=== PATIENT | female | born 1965 | race Caucasian/White ===

== ENCOUNTER 2018-09-08 15:34 | Emergency (ER) | payer MEDICAID ==
[~2018-09-08] VITALS: Ht 157.5 cm; Wt 69.2 kg
[2018-09-08 16:27] LABS: CLARITY,URINE CLOUDY (Clear); COLOR,URINE YELLOW (Yellow); GLUCOSE, URINE NEGATIVE (Neg); KETONES,URINE NEGATIVE (Neg); LEUKOCYTE ESTERASE ,URINE TRACE (Neg); NITRITES, URINE NEGATIVE (Neg); OCCULT BLOOD,URINE NEGATIVE (Neg); PROTEIN,URINE TRACE mg/dl (Neg)
[2018-09-08 16:28] LABS: UA COLLECTION TYPE CLN CATCH MIDSTREAM
[2018-09-08 16:30] LABS: BASOPHILS # (AUTO) 0.1 X10'3 (0-0.2); BASOPHILS % (AUTO) 0.9 % (0-1); EOSINOPHILS # (AUTO) 0.3 X10'3 (0-0.9); HEMATOCRIT 42.5 % (35.0-45.0); HEMOGLOBIN 14.7 g/dl (12.0-16.0); LYMPHOCYTES # (AUTO) 3.3 X10'3 (1.1-4.8); LYMPHOCYTES % (AUTO) 37.8 % (21-51); MEAN CORPUSCULAR HEMOGLOBIN 29.9 PG (27.0-31.0); MEAN CORPUSCULAR HGB CONC 34.7 g/dL (33.0-36.5); MEAN CORPUSCULAR VOLUME 86.2 FL (78-98); MONOCYTES # (AUTO) 0.5 X10'3 (0-0.9); MONOCYTES % (AUTO) 5.6 % (2-12); NEUTROPHILS # (AUTO) 4.5 X10'3 (1.8-7.7); NEUTROPHILS % (AUTO) 51.7 % (42-75); PLATELET COUNT 332 X10'3 (140-440); RED BLOOD COUNT 4.94 X10'6 (4.20-5.60); RED CELL DISTRIBUTION WIDTH 12.7 % (11.5-14.5); WHITE BLOOD COUNT 8.7 X10'3 (4.5-11.0)
[2018-09-08 16:33] LABS: SQUAMOUS EPITHELIAL CELL,UR MANY /LPF (FEW)
[2018-09-08 16:34] LABS: BACTERIA,URINE 1+ /HPF (Neg); MUCUS STRANDS MODERATE /LPF (Neg); RBC,URINE 0-2 /HPF (0-2)
[2018-09-08] MEDS ORDERED: LORazepam 1 MG tablet PO ONE (16:40)
[2018-09-08 16:42] LABS: ALANINE AMINOTRANSFERASE 28 U/L (12-78); ALBUMIN 3.7 G/DL (3.4-5.0); ALKALINE PHOSPHATASE 139 IU/L (46-116); ANION GAP 10 (8-16); ASPARTATE AMINO TRANSFERASE 17 U/L (10-37); BILIRUBIN,TOTAL 0.4 MG/DL (0.1-1.0); BLOOD UREA NITROGEN 12 MG/DL (7-18); BUN/CREATININE RATIO 17.6 (6.6-38.0); CALCIUM 9.8 MG/DL (8.5-10.1); CHLORIDE 104 MMOL/L (99-107); CREATININE 0.68 MG/DL (0.40-0.90); GLUCOSE 203 MG/DL (70-104); POTASSIUM 3.6 MMOL/L (3.5-5.1); SODIUM 139 MMOL/L (135-145); TOTAL CARBON DIOXIDE 25.1 MMOL/L (24-32); TOTAL PROTEIN 7.5 G/DL (6.4-8.2); eGFR 90 ML/MIN
[2018-09-08 18:09] LABS: PARTIAL THROMBOPLASTIN TIME 25 SECONDS (22-32)
[2018-09-08] MEDS ORDERED: LORA-269 PO (18:56)
[2018-09-08 19:06] VITALS: BP 154/100
== END 2018-09-08 19:08 | disposition home or self-care (01) ==
LOC: ER 15:34
DX: F41.9 Anxiety disorder, unspecified (principal); Z79.899 Other long term (current) drug therapy; Z98.890 Other specified postprocedural states
CPT/HCPCS: 36415; 71045; 80053; 81001; 84484; 85025; 85610; 85730; 93005; 99284

== ENCOUNTER 2019-01-08 09:23 | Inpatient (IN) | payer MEDICAID ==
[~2019-01-08] VITALS: Ht 157.5 cm; Wt 65.9 kg
[~2019-01-08 09:23] MED LIST: LORA-269 PO
[2019-01-08 10:42] LABS: BASOPHILS % (AUTO) 0.4 % (0-1); EOSINOPHILS # (AUTO) 0.3 X10'3 (0-0.9); EOSINOPHILS % (AUTO) 3.1 % (0-6); HEMATOCRIT 40.4 % (35.0-45.0); HEMOGLOBIN 13.9 g/dl (12.0-16.0); LYMPHOCYTES # (AUTO) 2.5 X10'3 (1.1-4.8); MEAN CORPUSCULAR HEMOGLOBIN 30.1 PG (27.0-31.0); MEAN CORPUSCULAR HGB CONC 34.4 g/dL (33.0-36.5); MEAN CORPUSCULAR VOLUME 87.4 FL (78-98); MEAN PLATELET VOLUME 8.5 FL (7.4-10.4); MONOCYTES # (AUTO) 0.4 X10'3 (0-0.9); MONOCYTES % (AUTO) 4.6 % (2-12); NEUTROPHILS # (AUTO) 5.7 X10'3 (1.8-7.7); NEUTROPHILS % (AUTO) 63.9 % (42-75); PLATELET COUNT 325 X10'3 (140-440); RED BLOOD COUNT 4.62 X10'6 (4.20-5.60); WHITE BLOOD COUNT 8.9 X10'3 (4.5-11.0)
--- NOTE | 2019-01-08 10:48 | NUR ---
PT OUT TO CT WITH SENIOR TECHNICAL RECRUITER VIA WHEELCHAIR
[2019-01-08 10:55] LABS: ALANINE AMINOTRANSFERASE 22 U/L (12-78); ALBUMIN 3.9 G/DL (3.4-5.0); ALKALINE PHOSPHATASE 100 IU/L (46-116); ANION GAP 12 (8-16); ASPARTATE AMINO TRANSFERASE 9 U/L (10-37); BILIRUBIN,TOTAL 0.3 MG/DL (0.1-1.0); BLOOD UREA NITROGEN 22 MG/DL (7-18); BUN/CREATININE RATIO 23.7 (6.6-38.0); CALCIUM 9.9 MG/DL (8.5-10.1); CHLORIDE 104 MMOL/L (99-107); CREATININE 0.93 MG/DL (0.40-0.90); GLUCOSE 279 MG/DL (70-104); POTASSIUM 3.8 MMOL/L (3.5-5.1); SODIUM 140 MMOL/L (135-145); TOTAL CARBON DIOXIDE 24.4 MMOL/L (24-32); TOTAL PROTEIN 7.7 G/DL (6.4-8.2); eGFR 63 ML/MIN
--- NOTE | 2019-01-08 10:58 | NUR ---
PT RETURNS FROM CT
[2019-01-08] MEDS ORDERED: potassium Cl 20 mEq SR tablet PO PRN ×2 (12:50)
[2019-01-08] MEDS ORDERED: acetaminophen 325mg tablet PO PRN ×2 (12:50)
[2019-01-08] MEDS ORDERED: potassium CL 10mEq/100ml bag 100 ML IV PRN ×2 (12:50)
[2019-01-08] MEDS ORDERED: magnesium 2GM in 50ml NS 50 ML IV PRN (12:50)
[2019-01-08] MEDS ORDERED: morphine 2 MG/ML inj. syringe IV PRN (12:50)
[2019-01-08] MEDS ORDERED: magnesium 4gm in 100ml NS 100 ML IV PRN (12:50)
[2019-01-08] MEDS: normal saline 1000ml 1,000 ML IV SCH ×2 (13:10→14:38)
--- NOTE | 2019-01-08 13:23 | NUR ---
received report from sanchez bhandari in [place]
[2019-01-08 13:25] LABS: HEMOGLOBIN A1C 10.3 % (4.5-6.2)
[2019-01-08 13:49] VITALS: BP 183/87
[2019-01-08] MEDS ORDERED: dextrose ORAL solution 15 GM/59 ML bottle PO PRN ×2 (14:25)
[2019-01-08] MEDS ORDERED: dextrose 50%-water 50ml dispensing syringe IV PRN ×2 (14:25)
[2019-01-08] MEDS ORDERED: glucagon, human recombinant 1mg kit SUBCUT PRN (14:25)
[2019-01-08] MEDS ORDERED: MESSAGE TO PHARMACY PO ONE (14:25)
[2019-01-08 18:00] VITALS: BP 182/99
--- NOTE | 2019-01-08 18:19 | NUR ---
GAVE REPORT TO MIRIAM MCCLAIN
--- NOTE | 2019-01-08 18:20 | NUR ---
Patient in room [facility]TH[facility] 4013. I have received report from Arlene PINEDA and had the opportunity to ask questions and assume patient care.
[2019-01-08] MEDS: heparin, porcine 5000 units/ml vial SQ SCH (19:21)
[2019-01-08] MEDS: docusate sod 100mg capsule PO SCH (19:21)
[2019-01-08] MEDS: insulin glargine (Lantus) pen - multi-dose SQ SCH (21:21)
[2019-01-08 22:00] VITALS: BP 156/67
[2019-01-09] MEDS: normal saline 1000ml 1,000 ML IV SCH ×2 (02:49→13:53)
[2019-01-09 05:00] VITALS: BP_SYST 176; BP_SYST 186; BP_DIAS 100; BP_DIAS 96
[2019-01-09 06:05] LABS: BASOPHILS # (AUTO) 0.1 X10'3 (0-0.2); BASOPHILS % (AUTO) 0.6 % (0-1); EOSINOPHILS # (AUTO) 0.4 X10'3 (0-0.9); EOSINOPHILS % (AUTO) 4.6 % (0-6); HEMATOCRIT 41.4 % (35.0-45.0); HEMOGLOBIN 13.9 g/dl (12.0-16.0); LYMPHOCYTES # (AUTO) 3.4 X10'3 (1.1-4.8); LYMPHOCYTES % (AUTO) 40.9 % (21-51); MEAN CORPUSCULAR HEMOGLOBIN 29.5 PG (27.0-31.0); MEAN CORPUSCULAR HGB CONC 33.7 g/dL (33.0-36.5); MEAN CORPUSCULAR VOLUME 87.6 FL (78-98); MEAN PLATELET VOLUME 9.4 FL (7.4-10.4); MONOCYTES # (AUTO) 0.4 X10'3 (0-0.9); MONOCYTES % (AUTO) 5.1 % (2-12); NEUTROPHILS % (AUTO) 48.8 % (42-75); PLATELET COUNT 329 X10'3 (140-440); RED BLOOD COUNT 4.72 X10'6 (4.20-5.60); RED CELL DISTRIBUTION WIDTH 13.2 % (11.5-14.5); WHITE BLOOD COUNT 8.3 X10'3 (4.5-11.0)
--- NOTE | 2019-01-09 06:07 | NUR ---
Problems reprioritized. Patient report given, questions answered & plan of care reviewed with Ermelinda PINEDA.
[2019-01-09 06:17] LABS: ALBUMIN 3.7 G/DL (3.4-5.0); ANION GAP 10 (8-16); BLOOD UREA NITROGEN 14 MG/DL (7-18); BUN/CREATININE RATIO 21.9 (6.6-38.0); CALCIUM 9.5 MG/DL (8.5-10.1); CHLORIDE 106 MMOL/L (99-107); CHOL/HDL RATIO 3.5 (0.00-4.99); CHOLESTEROL 135 MG/DL (0-200); CREATININE 0.64 MG/DL (0.40-0.90); GLUCOSE 163 MG/DL (70-104); HDL CHOLESTEROL 39 MG/DL (35-60); LDL CHOLESTEROL 67 MG/DL (50-100); MAGNESIUM 1.3 MG/DL (1.5-2.4); POTASSIUM 3.7 MMOL/L (3.5-5.1); SODIUM 142 MMOL/L (135-145); TOTAL CARBON DIOXIDE 26.2 MMOL/L (24-32); TRIGLYCERIDES 219 MG/DL (20-135); eGFR > 90 ML/MIN
[2019-01-09] MEDS: aspirin 325mg tablet PO SCH (08:12)
[2019-01-09] MEDS: docusate sod 100mg capsule PO SCH ×2 (08:12→20:26)
[2019-01-09] MEDS: K and/or MAG REPLACEMENT MC SCH (08:12)
[2019-01-09] MEDS: magnesium Cl slow-release 64mg tablet PO PRN ×2 (08:13→17:44)
[2019-01-09] MEDS: HYDROcodone/acetaminophen 5mg/325mg tablet PO PRN ×2 (08:19→19:15)
[2019-01-09] MEDS: insulin Lispro (HumaLOG) vial - multi-dose SQ SCH ×3 (08:27→19:12)
[2019-01-09] MEDS: heparin, porcine 5000 units/ml vial SQ SCH ×2 (08:33→20:26)
[2019-01-09] MEDS ORDERED: ATOR10TA70 PO (09:44)
[2019-01-09] MEDS ORDERED: METF-950 PO (09:44)
[2019-01-09] MEDS ORDERED: CLON0.2T PO (09:44)
[2019-01-09] MEDS ORDERED: FENO134C PO (09:44)
[2019-01-09] MEDS ORDERED: fenofibrate 145mg tablet PO SCH (12:35)
[2019-01-09] MEDS ORDERED: cloNIDine 0.1 mg tablet PO ONE (13:25)
[2019-01-09] MEDS ORDERED: mag hydrox/Alum hydrox/simeth 30ml oral suspension PO PRN (13:25)
[2019-01-09] MEDS: atorvastatin 10mg tablet PO SCH (13:37)
[2019-01-09] MEDS: vancomycin/NS 1 GM ADD-VANTAGE 250 ML IV SCH (14:05)
--- NOTE | 2019-01-09 14:32 | NUR ---
DM Consult: Pt admit w/ R arm numbness concerns for TIA hx T2DM A1C 10.3. Per MD note compliant w/ meds but not diet. Pt/family seen by RD for written/verbal DM ed w/ RD contact information provided. Pt/SO report recently starting to follow PCP for DM management, take meds as Rx, and check GLU each AM w/ strips and never run out. RD encouraged pt to check GLU at lease BID[facility], attend CDE course, and establish w/ cleaning team member if possible. Pt/SO had multiple questions regarding proper hydration, portion sizing, meal frequency, diabetic friendly ONS, and signs of altered GLU which RD reviewed. Encouraged pt/SO to contact RD if further questions. Pt reports low appetite lately at home and agreeable to Chocolate Glucerna BIDBD pending MD verification. PO 100% carb controlled/mechanical soft ground meat meals per [employer]MENT TECHNICIAN since pt has no teeth; meeting needs. LBM 01/06. RD d/w RN for anti-hyperlipidemic per MD approval given TG 219 on admit given DM hx. Will continue to monitor. Rec: 1. continue mechanical soft/carb controlled 2. chocolate Glucerna BIDBD pending MD verification prior to sending on trays 3. wt per rx Addendum: 01/09/19 at [address] Amended: Links added.
[2019-01-09] MEDS ORDERED: NUT.TX.GLUC.INTOLER,LAC-FR,SOY (GLUCERNA) 237 ML PO SCH (17:30)
--- NOTE | 2019-01-09 18:06 | NUR ---
Patient in room [facility]TH[facility] 4013. I have received report from MIRIAM Wadsworth and had the opportunity to ask questions and assume patient care.
[2019-01-09] MEDS: cloNIDine 0.1 mg tablet PO SCH (20:26)
[2019-01-09] MEDS: insulin glargine (Lantus) pen - multi-dose SQ SCH (21:16)
[2019-01-09 22:36] VITALS: BP 115/56
[2019-01-10] MEDS: vancomycin/NS 1 GM ADD-VANTAGE 250 ML IV SCH ×2 (01:31→14:04)
[2019-01-10 02:00] VITALS: BP 163/82
[2019-01-10] MEDS: normal saline 1000ml 1,000 ML IV SCH ×2 (03:31→14:26)
[2019-01-10 05:00] VITALS: BP 170/91
[2019-01-10 05:57] LABS: ALBUMIN 3.1 G/DL (3.4-5.0); ANION GAP 11 (8-16); BLOOD UREA NITROGEN 11 MG/DL (7-18); BUN/CREATININE RATIO 15.7 (6.6-38.0); CALCIUM 8.9 MG/DL (8.5-10.1); CHLORIDE 109 MMOL/L (99-107); GLUCOSE 189 MG/DL (70-104); MAGNESIUM 1.6 MG/DL (1.5-2.4); SODIUM 143 MMOL/L (135-145); TOTAL CARBON DIOXIDE 22.9 MMOL/L (24-32); eGFR 87 ML/MIN
[2019-01-10 06:09] LABS: BASOPHILS % (AUTO) 0.4 % (0-1); EOSINOPHILS # (AUTO) 0.3 X10'3 (0-0.9); EOSINOPHILS % (AUTO) 3.1 % (0-6); HEMATOCRIT 37.1 % (35.0-45.0); HEMOGLOBIN 12.6 g/dl (12.0-16.0); LYMPHOCYTES # (AUTO) 2.8 X10'3 (1.1-4.8); LYMPHOCYTES % (AUTO) 32.6 % (21-51); MEAN CORPUSCULAR HEMOGLOBIN 29.8 PG (27.0-31.0); MEAN CORPUSCULAR VOLUME 87.7 FL (78-98); MEAN PLATELET VOLUME 9.6 FL (7.4-10.4); MONOCYTES # (AUTO) 0.5 X10'3 (0-0.9); MONOCYTES % (AUTO) 5.5 % (2-12); NEUTROPHILS # (AUTO) 5.1 X10'3 (1.8-7.7); NEUTROPHILS % (AUTO) 58.4 % (42-75); PLATELET COUNT 291 X10'3 (140-440); RED BLOOD COUNT 4.23 X10'6 (4.20-5.60); RED CELL DISTRIBUTION WIDTH 13.3 % (11.5-14.5); WHITE BLOOD COUNT 8.7 X10'3 (4.5-11.0)
--- NOTE | 2019-01-10 06:11 | NUR ---
Problems reprioritized. Patient report given, questions answered & plan of care reviewed with MIRIAM Wadsworth.
[2019-01-10] MEDS: fenofibrate 145mg tablet PO SCH (08:00)
[2019-01-10] MEDS: K and/or MAG REPLACEMENT MC SCH (08:00)
[2019-01-10] MEDS: ondansetron/PF 4mg/2ml inj IV PRN ×2 (08:39→19:38)
[2019-01-10] MEDS: aspirin 325mg tablet PO SCH (08:44)
[2019-01-10] MEDS: docusate sod 100mg capsule PO SCH ×2 (08:45→19:40)
[2019-01-10] MEDS: cloNIDine 0.1 mg tablet PO SCH ×2 (08:50→19:39)
[2019-01-10] MEDS: atorvastatin 10mg tablet PO SCH (08:50)
[2019-01-10] MEDS: heparin, porcine 5000 units/ml vial SQ SCH ×2 (08:53→19:39)
[2019-01-10] MEDS: insulin Lispro (HumaLOG) vial - multi-dose SQ SCH ×2 (08:59→14:10)
[2019-01-10 10:00] VITALS: BP 173/102
[2019-01-10] MEDS: HYDROcodone/acetaminophen 5mg/325mg tablet PO PRN (16:35)
[2019-01-10 18:00] VITALS: BP 175/97
--- NOTE | 2019-01-10 19:01 | NUR ---
Patient in room [facility]TH[facility] 4013. I have received report from Ermelinda PINEDA and had the opportunity to ask questions and assume patient care. Pt resting comfortably in bed working on her dinner tray. No signs of distress, will continue to monitor.
[2019-01-10] MEDS: lactobacillus rhamnosus 10,000 MMU CELLS/CAPSULE PO SCH (19:40)
[2019-01-10] MEDS: insulin glargine (Lantus) pen - multi-dose SQ SCH (21:13)
[2019-01-10 22:00] VITALS: BP 159/78
[2019-01-11] MEDS ORDERED: VANCOMYCIN LEVEL IV ONE (01:30)
[2019-01-11 02:05] LABS: BASOPHILS % (AUTO) 0.4 % (0-1); EOSINOPHILS # (AUTO) 0.2 X10'3 (0-0.9); EOSINOPHILS % (AUTO) 2.1 % (0-6); HEMATOCRIT 36.6 % (35.0-45.0); HEMOGLOBIN 12.9 g/dl (12.0-16.0); LYMPHOCYTES # (AUTO) 3.2 X10'3 (1.1-4.8); LYMPHOCYTES % (AUTO) 40.6 % (21-51); MEAN CORPUSCULAR HEMOGLOBIN 30.6 PG (27.0-31.0); MEAN CORPUSCULAR HGB CONC 35.2 g/dL (33.0-36.5); MEAN CORPUSCULAR VOLUME 86.9 FL (78-98); MEAN PLATELET VOLUME 9.1 FL (7.4-10.4); MONOCYTES # (AUTO) 0.4 X10'3 (0-0.9); MONOCYTES % (AUTO) 5.6 % (2-12); NEUTROPHILS % (AUTO) 51.3 % (42-75); PLATELET COUNT 305 X10'3 (140-440); RED BLOOD COUNT 4.22 X10'6 (4.20-5.60); RED CELL DISTRIBUTION WIDTH 13.1 % (11.5-14.5); WHITE BLOOD COUNT 7.8 X10'3 (4.5-11.0)
[2019-01-11] MEDS: vancomycin/NS 1 GM ADD-VANTAGE 250 ML IV SCH (02:06)
[2019-01-11 02:22] LABS: ALBUMIN 3.2 G/DL (3.4-5.0); ANION GAP 7 (8-16); BLOOD UREA NITROGEN 9 MG/DL (7-18); BUN/CREATININE RATIO 13.6 (6.6-38.0); CALCIUM 8.8 MG/DL (8.5-10.1); CHLORIDE 110 MMOL/L (99-107); CREATININE 0.66 MG/DL (0.40-0.90); GLUCOSE 169 MG/DL (70-104); MAGNESIUM 1.6 MG/DL (1.5-2.4); POTASSIUM 3.7 MMOL/L (3.5-5.1); SODIUM 142 MMOL/L (135-145); TOTAL CARBON DIOXIDE 24.8 MMOL/L (24-32); VANCOMYCIN,TROUGH 9.1 UG/ML (6.0-14.0); eGFR > 90 ML/MIN
[2019-01-11 06:00] VITALS: BP 156/73
--- NOTE | 2019-01-11 06:30 | NUR ---
Patient in room [facility]TH[facility] 4013. I have received report from Asuncion PINEDA and had the opportunity to ask questions and assume patient care.
[2019-01-11] MEDS: normal saline 1000ml 1,000 ML IV SCH ×2 (06:38→22:53)
--- NOTE | 2019-01-11 06:38 | NUR ---
Problems reprioritized. Patient report given, questions answered & plan of care reviewed with Nikki PINEDA.
[2019-01-11] MEDS: K and/or MAG REPLACEMENT MC SCH (08:00)
[2019-01-11] MEDS: aspirin 325mg tablet PO SCH (08:02)
[2019-01-11] MEDS: fenofibrate 145mg tablet PO SCH (08:02)
[2019-01-11] MEDS: cloNIDine 0.1 mg tablet PO SCH ×2 (08:02→19:04)
[2019-01-11] MEDS: lactobacillus rhamnosus 10,000 MMU CELLS/CAPSULE PO SCH ×2 (08:02→19:04)
[2019-01-11] MEDS: heparin, porcine 5000 units/ml vial SQ SCH ×2 (08:02→19:04)
[2019-01-11] MEDS: atorvastatin 10mg tablet PO SCH (08:02)
[2019-01-11] MEDS: docusate sod 100mg capsule PO SCH ×2 (08:02→19:04)
[2019-01-11] MEDS: insulin Lispro (HumaLOG) vial - multi-dose SQ SCH ×3 (09:05→19:00)
[2019-01-11] MEDS: HYDROcodone/acetaminophen 5mg/325mg tablet PO PRN ×2 (09:10→16:45)
[2019-01-11 10:00] VITALS: BP 155/93
[2019-01-11] MEDS: VANCOmycin 1250MG/NS 250ml Bag 250 ML IV SCH (14:12)
[2019-01-11 14:29] VITALS: BP 153/86
[2019-01-11 14:53] VITALS: BP 172/91
[2019-01-11 18:00] VITALS: BP 178/77
--- NOTE | 2019-01-11 18:06 | NUR ---
Problems reprioritized. Patient report given, questions answered & plan of care reviewed with Simi RN.
--- NOTE | 2019-01-11 18:10 | NUR ---
Received report from Nikki PINEDA. Assumed care of patient.
--- NOTE | 2019-01-11 19:00 | NUR ---
Sensation difference to right arm may be related to breast infection. Addendum: 01/12/19 at 0235 by Maine Guzman RN Amended: Links added.
[2019-01-11] MEDS: insulin glargine (Lantus) pen - multi-dose SQ SCH (21:14)
[2019-01-11 22:00] VITALS: BP 123/64
[2019-01-12] MEDS: VANCOmycin 1250MG/NS 250ml Bag 250 ML IV SCH ×2 (01:51→13:35)
[2019-01-12 02:00] VITALS: BP 158/75
[2019-01-12] MEDS: HYDROcodone/acetaminophen 5mg/325mg tablet PO PRN ×2 (02:05→13:41)
[2019-01-12 05:55] LABS: BASOPHILS % (AUTO) 0.5 % (0-1); EOSINOPHILS # (AUTO) 0.3 X10'3 (0-0.9); HEMOGLOBIN 12.8 g/dl (12.0-16.0); LYMPHOCYTES # (AUTO) 3.2 X10'3 (1.1-4.8); LYMPHOCYTES % (AUTO) 39.7 % (21-51); MEAN CORPUSCULAR HEMOGLOBIN 29.9 PG (27.0-31.0); MEAN CORPUSCULAR HGB CONC 34.5 g/dL (33.0-36.5); MEAN CORPUSCULAR VOLUME 86.8 FL (78-98); MEAN PLATELET VOLUME 9.5 FL (7.4-10.4); MONOCYTES # (AUTO) 0.5 X10'3 (0-0.9); NEUTROPHILS % (AUTO) 49.8 % (42-75); PLATELET COUNT 311 X10'3 (140-440); RED BLOOD COUNT 4.27 X10'6 (4.20-5.60); RED CELL DISTRIBUTION WIDTH 13.5 % (11.5-14.5)
[2019-01-12 06:00] VITALS: BP 162/84
[2019-01-12 06:07] LABS: ALBUMIN 3.2 G/DL (3.4-5.0); ANION GAP 9 (8-16); BLOOD UREA NITROGEN 13 MG/DL (7-18); BUN/CREATININE RATIO 20.3 (6.6-38.0); CALCIUM 9.6 MG/DL (8.5-10.1); CHLORIDE 109 MMOL/L (99-107); CREATININE 0.64 MG/DL (0.40-0.90); GLUCOSE 161 MG/DL (70-104); MAGNESIUM 1.6 MG/DL (1.5-2.4); POTASSIUM 4.3 MMOL/L (3.5-5.1); SODIUM 141 MMOL/L (135-145); TOTAL CARBON DIOXIDE 23.5 MMOL/L (24-32); eGFR > 90 ML/MIN
--- NOTE | 2019-01-12 06:20 | NUR ---
Patient in room [facility]TH[facility] 4013. I have received report from BELIA PINEDA and had the opportunity to ask questions and assume patient care.
--- NOTE | 2019-01-12 06:22 | NUR ---
Gave report to Joselyn PINEDA.
[2019-01-12] MEDS: K and/or MAG REPLACEMENT MC SCH (07:56)
[2019-01-12] MEDS: aspirin 325mg tablet PO SCH (08:04)
[2019-01-12] MEDS: lactobacillus rhamnosus 10,000 MMU CELLS/CAPSULE PO SCH ×2 (08:04→19:09)
[2019-01-12] MEDS: atorvastatin 10mg tablet PO SCH (08:04)
[2019-01-12] MEDS: fenofibrate 145mg tablet PO SCH (08:04)
[2019-01-12] MEDS: docusate sod 100mg capsule PO SCH ×2 (08:05→19:09)
[2019-01-12] MEDS: cloNIDine 0.1 mg tablet PO SCH ×2 (08:05→19:09)
[2019-01-12] MEDS: heparin, porcine 5000 units/ml vial SQ SCH ×2 (08:08→19:10)
[2019-01-12] MEDS: insulin Lispro (HumaLOG) vial - multi-dose SQ SCH ×3 (09:01→19:14)
[2019-01-12 10:00] VITALS: BP 139/70
[2019-01-12] MEDS: normal saline 1000ml 1,000 ML IV SCH (12:42)
[2019-01-12 18:00] VITALS: BP 155/80
--- NOTE | 2019-01-12 18:35 | NUR ---
Problems reprioritized. Patient report given, questions answered & plan of care reviewed with DARIA PINEDA.
--- NOTE | 2019-01-12 18:50 | NUR ---
Patient in room [facility]TH[facility] 4013. I have received report from MIRIAM Alves and had the opportunity to ask questions and assume patient care.
[2019-01-12] MEDS: insulin glargine (Lantus) pen - multi-dose SQ SCH (21:00)
[2019-01-12 22:00] VITALS: BP 182/84
[2019-01-13] VITALS: BP 165/89
[2019-01-13] MEDS ORDERED: VANCOMYCIN LEVEL IV ONE (01:30)
[2019-01-13] MEDS: normal saline 1000ml 1,000 ML IV SCH (01:32)
[2019-01-13] MEDS: HYDROcodone/acetaminophen 5mg/325mg tablet PO PRN (01:34)
[2019-01-13] MEDS: VANCOmycin 1250MG/NS 250ml Bag 250 ML IV SCH (01:43)
[2019-01-13 02:08] LABS: BASOPHILS % (AUTO) 0.6 % (0-1); EOSINOPHILS # (AUTO) 0.3 X10'3 (0-0.9); EOSINOPHILS % (AUTO) 3.3 % (0-6); HEMATOCRIT 37.6 % (35.0-45.0); HEMOGLOBIN 13.2 g/dl (12.0-16.0); LYMPHOCYTES % (AUTO) 37.3 % (21-51); MEAN CORPUSCULAR HEMOGLOBIN 30.5 PG (27.0-31.0); MEAN PLATELET VOLUME 9.3 FL (7.4-10.4); MONOCYTES # (AUTO) 0.5 X10'3 (0-0.9); MONOCYTES % (AUTO) 5.9 % (2-12); NEUTROPHILS # (AUTO) 4.3 X10'3 (1.8-7.7); NEUTROPHILS % (AUTO) 52.9 % (42-75); PLATELET COUNT 322 X10'3 (140-440); RED BLOOD COUNT 4.33 X10'6 (4.20-5.60); RED CELL DISTRIBUTION WIDTH 13.4 % (11.5-14.5); WHITE BLOOD COUNT 8.1 X10'3 (4.5-11.0)
[2019-01-13 02:09] LABS: ALBUMIN 3.5 G/DL (3.4-5.0); ANION GAP 9 (8-16); BLOOD UREA NITROGEN 13 MG/DL (7-18); BUN/CREATININE RATIO 18.3 (6.6-38.0); CALCIUM 9.2 MG/DL (8.5-10.1); CHLORIDE 106 MMOL/L (99-107); CREATININE 0.71 MG/DL (0.40-0.90); GLUCOSE 147 MG/DL (70-104); MAGNESIUM 1.6 MG/DL (1.5-2.4); POTASSIUM 4.2 MMOL/L (3.5-5.1); SODIUM 140 MMOL/L (135-145); TOTAL CARBON DIOXIDE 25.5 MMOL/L (24-32); VANCOMYCIN,TROUGH 16.7 UG/ML (6.0-14.0); eGFR 86 ML/MIN
--- NOTE | 2019-01-13 06:40 | NUR ---
Problems reprioritized. Patient report given, questions answered & plan of care reviewed with MIRIAM Thompson.
[2019-01-13] MEDS: K and/or MAG REPLACEMENT MC SCH (08:00)
[2019-01-13] MEDS: insulin Lispro (HumaLOG) vial - multi-dose SQ SCH (08:45)
[2019-01-13] MEDS: fenofibrate 145mg tablet PO SCH (08:50)
[2019-01-13] MEDS: docusate sod 100mg capsule PO SCH (08:50)
[2019-01-13] MEDS: aspirin 325mg tablet PO SCH (08:50)
[2019-01-13] MEDS: atorvastatin 10mg tablet PO SCH (08:50)
[2019-01-13] MEDS: lactobacillus rhamnosus 10,000 MMU CELLS/CAPSULE PO SCH (08:50)
[2019-01-13] MEDS: cloNIDine 0.1 mg tablet PO SCH (08:50)
[2019-01-13] MEDS: heparin, porcine 5000 units/ml vial SQ SCH (08:51)
[2019-01-13 10:00] VITALS: BP 173/95
[2019-01-13] MEDS ORDERED: METF-950 PO (11:53)
[2019-01-13] MEDS ORDERED: GLIM2TAB3 PO (11:53)
[2019-01-13] MEDS ORDERED: ASPI-1 PO (11:53)
[2019-01-13] MEDS ORDERED: CEPH-572 PO (11:53)
== END 2019-01-13 14:55 | disposition home or self-care (01) | DRG 385 ==
LOC: ER 09:24 → OBSVTOIN 13:27 → ORTHO 4S 13:27 → CMPBEDREQ 01-09 19:34
PROVIDERS: ADMIT Internal Medicine; ATTEND Internal Medicine
PROC: 0H9T3ZZ Drainage of Right Breast, Percutaneous Approach (ICD-10-PCS; principal; 2019-01-11)
DX: N61.1 Abscess of the breast and nipple (principal); E11.42 Type 2 diabetes mellitus with diabetic polyneuropathy; E11.65 Type 2 diabetes mellitus with hyperglycemia; M48.02 Spinal stenosis, cervical region; E78.5 Hyperlipidemia, unspecified; F17.200 Nicotine dependence, unspecified, uncomplicated; F12.10 Cannabis abuse, uncomplicated; F41.9 Anxiety disorder, unspecified; G89.29 Other chronic pain; M50.323 Other cervical disc degeneration at C6-C7 level; M54.5 Low back pain; I10 Essential (primary) hypertension; Z79.84 Long term (current) use of oral hypoglycemic drugs; Z98.891 History of uterine scar from previous surgery; Z79.899 Other long term (current) drug therapy
CPT/HCPCS: 10160; 36415; 70450; 70544; 70551; 71045; 72141; 76642; 76881; 76942; 80048; 80053; 80061; 80202; 82948; 83036; 83735; 84443; 85025; 85610; 87070; 87075; 87077; 87081; 87102; 87186; 92508; 92616; 93005; 93306; 93880; 97110; 97116; 97162; 97530; 99285; G0378; J1644; J1815; J2270; J2405; J3370; J7030

== ENCOUNTER 2020-02-05 05:22 | Day surgery (SDC) | payer MEDICAID ==
[2020-01-30 10:38] LABS: BASOPHILS # (AUTO) 0.1 X10'3 (0-0.2); EOSINOPHILS # (AUTO) 1.1 X10'3 (0-0.9); PRE OP HEMATOCRIT 35.6 % (35.0-45.0); PRE OP HEMOGLOBIN 12.1 g/dL (12.0-16.0); RED CELL DISTRIBUTION WIDTH 14.1 % (11.5-14.5)
[2020-01-30 10:39] LABS: BASOPHILS % (AUTO) 1.2 % (0-1); EOSINOPHILS % (AUTO) 10.5 % (0-6); LYMPHOCYTES # (AUTO) 3.2 X10'3 (1.1-4.8); LYMPHOCYTES % (AUTO) 30.1 % (21-51); MEAN CORPUSCULAR HEMOGLOBIN 30.6 PG (27.0-31.0); MEAN CORPUSCULAR HGB CONC 34.1 g/dL (33.0-36.5); MEAN CORPUSCULAR VOLUME 89.9 FL (78-98); MEAN PLATELET VOLUME 8.7 FL (7.4-10.4); MONOCYTES # (AUTO) 0.4 X10'3 (0-0.9); NEUTROPHILS # (AUTO) 5.7 X10'3 (1.8-7.7); NEUTROPHILS % (AUTO) 54.2 % (42-75); PRE OP PLATELET COUNT 392 X10'3 (140-440); RED BLOOD COUNT 3.96 X10'6 (4.20-5.60)
[2020-01-30 10:52] LABS: ALBUMIN 3.4 G/DL (3.4-5.0); ALBUMIN/GLOBULIN RATIO 1.1 (1.1-1.5); ALKALINE PHOSPHATASE 56 IU/L (46-116); BLOOD UREA NITROGEN 9 MG/DL (7-18); CHLORIDE 106 MMOL/L (99-107); PRE OP ALT 29 U/L (30-65); PRE OP ANION GAP 4 (8-16); PRE OP AST 24 U/L (10-37); PRE OP BILIRUB, TOTAL 0.3 MG/DL (0.0-1.0); PRE OP GLUCOSE 113 MG/DL (70-104); PRE OP POTASSIUM 3.6 MMOL/L (3.4-5.1); PRE OP SODIUM 142 MMOL/L (135-145); TOTAL CARBON DIOXIDE 31.8 MMOL/L (24-32); TOTAL PROTEIN 6.6 G/DL (6.4-8.2); eGFR 58 ML/MIN
[~2020-02-05] VITALS: Ht 157.5 cm; Wt 68.8 kg
[~2020-02-05 05:22] MED LIST changes: +AMA1T PO; +ASPI-1264 PO; +ATOR10TA70 PO; +CLON0.2T PO; +FENO134C PO; +FISH OIL PO; +GABA-530 PO; -LORA-269 PO; +MELO-102 PO; +METF500T PO; +MULT-1085 PO; +VITA-268 PO; +ringers solution, lacted 1,000 ML IV SCH
[2020-02-05] MEDS ORDERED: famotidine 20mg tablet PO ONE (05:30)
[2020-02-05] MEDS ORDERED: ceFAZolin/D5W- 1GM premix 50 ML IV ONE (05:30)
[2020-02-05 06:00] VITALS: BP 124/70
[2020-02-05] MEDS ORDERED: BUPIVAcaine/PF 2.5mg/ml (0.25%) 10ml vial ONE (06:45)
[2020-02-05 07:00] VITALS: BP 124/70
[2020-02-05] MEDS ORDERED: LIDOcaine 0.5% (5mg/ml) 50ml vial ONE (07:28)
[2020-02-05] MEDS ORDERED: fentaNYL/PF 50MCG/1 ML 2ML syringe ONE (07:34)
[2020-02-05] MEDS ORDERED: midazolam 2 mg/2 ml injection ONE (07:35)
[2020-02-05] MEDS ORDERED: proCHLORperazine 10 MG/2 ml inj IV PRN (07:40)
[2020-02-05] MEDS ORDERED: morphine 4 MG/ML inj SYRINge IV PRN (07:40)
[2020-02-05] MEDS ORDERED: ringers solution, lacted 1,000 ML IV SCH (07:40)
[2020-02-05] MEDS ORDERED: ondansetron/PF 4mg/2ml inj IV PRN (07:40)
[2020-02-05] MEDS ORDERED: morphine 2 MG/ML inj. syringe IV PRN (07:40)
[2020-02-05] MEDS ORDERED: meperidine/PF 25mg/ml syringe IV PRN ×3 (07:40)
[2020-02-05 08:25] VITALS: BP 155/83
--- NOTE | 2020-02-05 08:25 | NUR ---
Received from OR via BED, accompanied by Anesthesiologist DR DUNBAR and report given by Anesthesiolgist. PATIENT A&OX4, DENIES PAIN, V/S WNL, NEUROVASCULAR CHECKS INTACT, 20G PIV RUE, SCD ON, DRESSING TO LEFT WRIST CDI ELEVATED WITH ICEBAG APPLIED.
[2020-02-05 08:35] VITALS: BP 149/87
[2020-02-05 08:45] VITALS: BP 142/81
[2020-02-05 08:55] VITALS: BP 140/74
--- NOTE | 2020-02-05 08:55 | NUR ---
PATIENT A&OX4, DENIES PAIN, V/S WNL, NEUROVASCULAR CHECKS INTACT, 20G PIV RUE D/C, SCD OFF, DRESSING TO LEFT WRIST CDI ELEVATED WITH ICEBAG APPLIED. I HAVE REVIEWED D/C INSTRUCTIONS WITH PATIENT AND FAMILY AND THEY HAVE VERBALIZED UNDERSTANDING. PATIENT D/C HOME WITH ALL BELONGINGS AND FAMILY GAVE TRANSPORT HOME.
== END 2020-02-05 08:55 | disposition home or self-care (01) ==
LOC: PAS 05:22
PROVIDERS: ATTEND Orthopaedic Surgery Hand Surgery
DX: G56.02 Carpal tunnel syndrome, left upper limb (principal); I10 Essential (primary) hypertension; E11.40 Type 2 diabetes mellitus with diabetic neuropathy, unspecified; E78.00 Pure hypercholesterolemia, unspecified; Z98.890 Other specified postprocedural states; Z20.828 Contact with and (suspected) exposure to other viral communicable diseases; F17.210 Nicotine dependence, cigarettes, uncomplicated; Z79.82 Long term (current) use of aspirin; Z79.84 Long term (current) use of oral hypoglycemic drugs; Z79.899 Other long term (current) drug therapy; Z72.89 Other problems related to lifestyle
CPT/HCPCS: 29848; 36415; 80053; 82948; 85025; 87635; 93005; J0690; J2001; J2250; J3010; J3490; A4215; A7000; J7120

== ENCOUNTER 2020-03-04 05:10 | Day surgery (SDC) | payer MEDICAID ==
[2020-02-26 11:20] LABS: BASOPHILS # (AUTO) 0.1 X10'3 (0-0.2); BASOPHILS % (AUTO) 0.7 % (0-1); EOSINOPHILS # (AUTO) 0.1 X10'3 (0-0.9); EOSINOPHILS % (AUTO) 0.4 % (0-6); LYMPHOCYTES # (AUTO) 1.3 X10'3 (1.1-4.8); LYMPHOCYTES % (AUTO) 8.4 % (21-51); MEAN CORPUSCULAR HEMOGLOBIN 29.5 PG (27.0-31.0); MEAN CORPUSCULAR HGB CONC 33.4 g/dL (33.0-36.5); MEAN CORPUSCULAR VOLUME 88.3 FL (78-98); MEAN PLATELET VOLUME 9.1 FL (7.4-10.4); MONOCYTES # (AUTO) 0.3 X10'3 (0-0.9); NEUTROPHILS # (AUTO) 13.4 X10'3 (1.8-7.7); NEUTROPHILS % (AUTO) 88.5 % (42-75); PRE OP HEMATOCRIT 40.7 % (35.0-45.0); PRE OP HEMOGLOBIN 13.6 g/dL (12.0-16.0); PRE OP PLATELET COUNT 516 X10'3 (140-440); RED CELL DISTRIBUTION WIDTH 14.9 % (11.5-14.5)
[2020-02-26 11:33] LABS: ALBUMIN 4.4 G/DL (3.4-5.0); ALKALINE PHOSPHATASE 82 IU/L (46-116); BLOOD UREA NITROGEN 14 MG/DL (7-18); BUN/CREATININE RATIO 13.5 (6.6-38.0); CALCIUM 9.9 MG/DL (8.5-10.1); CHLORIDE 99 MMOL/L (99-107); CREATININE 1.04 MG/DL (0.40-0.90); PRE OP ALT 26 U/L (30-65); PRE OP ANION GAP 9 (8-16); PRE OP AST 24 U/L (10-37); PRE OP BILIRUB, TOTAL 0.4 MG/DL (0.0-1.0); PRE OP SODIUM 138 MMOL/L (135-145); TOTAL PROTEIN 8.6 G/DL (6.4-8.2); eGFR 55 ML/MIN
[2020-02-26 11:37] LABS: PRE OP GLUCOSE 240 MG/DL (70-104); PRE OP POTASSIUM 3.3 MMOL/L (3.4-5.1)
[~2020-03-04] VITALS: Ht 157.5 cm; Wt 66.9 kg
[2020-03-04] MEDS ORDERED: famotidine 10mg tablet PO ONE (05:30)
[2020-03-04] MEDS ORDERED: ceFAZolin 2gm in dextrose, iso 50 ML IV ONE (06:00)
[2020-03-04] MEDS ORDERED: BUPIVAcaine/PF 2.5mg/ml (0.25%) 10ml vial ONE (06:38)
[2020-03-04 06:41] VITALS: BP 102/66
[2020-03-04 06:44] VITALS: BP 102/66
[2020-03-04] MEDS ORDERED: LIDOcaine 0.5% (5mg/ml) 50ml vial ONE (07:44)
[2020-03-04] MEDS ORDERED: fentaNYL/PF 50MCG/1 ML 2ML syringe ONE (07:54)
[2020-03-04] MEDS ORDERED: midazolam 2 mg/2 ml injection ONE (07:54)
[2020-03-04] MEDS ORDERED: ringers solution, lacted 1,000 ML IV SCH (08:00)
[2020-03-04] MEDS ORDERED: meperidine/PF 25mg/ml syringe IV PRN ×3 (08:00)
[2020-03-04] MEDS ORDERED: proCHLORperazine 10 MG/2 ml inj IV PRN (08:00)
[2020-03-04] MEDS ORDERED: morphine 2 MG/ML inj. syringe IV PRN (08:00)
[2020-03-04] MEDS ORDERED: morphine 4 MG/ML inj SYRINge IV PRN (08:00)
[2020-03-04] MEDS ORDERED: ondansetron/PF 4mg/2ml inj IV PRN (08:00)
[2020-03-04 08:46] VITALS: BP 137/81
--- NOTE | 2020-03-04 08:46 | NUR ---
Received from OR via [facility], accompanied by Anesthesiologist Rafael and report given by Anesthesiolgist. Pt alert and responsive, no pain, wiggles fingers, good cap refill. VS stable, IVF LR at 100cc/hr. ICE and elevation to right wrist. No O2 sats 97%.
[2020-03-04 08:50] VITALS: BP 140/80
[2020-03-04 09:00] VITALS: BP 141/74
--- NOTE | 2020-03-04 09:16 | NUR ---
PATIENT AND FAMILY AND THEY HAVE VERBALIZED UNDERSTANDING, OPPORTUNITY TO ASK QUESTIONS GIVEN AND PATIENT COMFORTABLE WITH DC. IV TAKEN OUT WITHOUT COMPLICATION. PATIENT HAS MET ALL DC CRITERIA FOR DC HOME. I HAVE REVIEWED D/C INSTRUCTIONS WITH OUT VIA WHEELCHAIR WHERE PATIENT WAS TAKEN HOME WITH ALL BELONGINGS. FAMILY GAVE PATIENT TRANSPORT HOME. ICE PACK PROVIDED. 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
== END 2020-03-04 09:16 | disposition home or self-care (01) ==
LOC: PAS 05:10
PROVIDERS: ATTEND Orthopaedic Surgery Hand Surgery
DX: G56.01 Carpal tunnel syndrome, right upper limb (principal); E11.9 Type 2 diabetes mellitus without complications; E78.00 Pure hypercholesterolemia, unspecified; I10 Essential (primary) hypertension; Z72.89 Other problems related to lifestyle; F17.210 Nicotine dependence, cigarettes, uncomplicated; Z79.899 Other long term (current) drug therapy; Z20.828 Contact with and (suspected) exposure to other viral communicable diseases; Z79.84 Long term (current) use of oral hypoglycemic drugs; Z79.82 Long term (current) use of aspirin; Z98.890 Other specified postprocedural states
CPT/HCPCS: 29848; 36415; 80053; 82948; 85025; 87635; J2001; J2250; J3010; J3490; A4215; A7000; J7120

== ENCOUNTER 2022-09-14 17:46 | Emergency (ER) | payer MEDICAID ==
[~2022-09-14] VITALS: Ht 157.5 cm; Wt 70.0 kg
[~2022-09-14 17:46] MED LIST changes: -FENO134C PO; +FENO134C21 PO; -ringers solution, lacted 1,000 ML IV SCH
[2022-09-14 18:52] LABS: BASOPHILS # (AUTO) 0.1 X10'3 (0-0.2); BASOPHILS % (AUTO) 0.8 % (0-1); EOSINOPHILS # (AUTO) 0.7 X10'3 (0-0.9); EOSINOPHILS % (AUTO) 8.3 % (0-6); HEMATOCRIT 34.1 % (35.0-45.0); HEMOGLOBIN 11.3 g/dl (12.0-16.0); LYMPHOCYTES # (AUTO) 2.9 X10'3 (1.1-4.8); LYMPHOCYTES % (AUTO) 33.4 % (21-51); MEAN CORPUSCULAR HEMOGLOBIN 30.2 PG (27.0-31.0); MEAN CORPUSCULAR HGB CONC 33.1 g/dL (33.0-36.5); MEAN CORPUSCULAR VOLUME 91.3 FL (78-98); MEAN PLATELET VOLUME 9.3 FL (7.4-10.4); MONOCYTES # (AUTO) 0.6 X10'3 (0-0.9); MONOCYTES % (AUTO) 6.6 % (2-12); NEUTROPHILS # (AUTO) 4.5 X10'3 (1.8-7.7); NEUTROPHILS % (AUTO) 50.9 % (42-75); PLATELET COUNT 333 X10'3 (140-440); RED BLOOD COUNT 3.73 X10'6 (4.20-5.60); RED CELL DISTRIBUTION WIDTH 14.8 % (11.5-14.5); WHITE BLOOD COUNT 8.8 X10'3 (4.5-11.0)
[2022-09-14 19:00] LABS: ALANINE AMINOTRANSFERASE 16 U/L (12-78); ALBUMIN 3.7 G/DL (3.4-5.0); ALBUMIN/GLOBULIN RATIO 1.2 (1.1-1.5); ALKALINE PHOSPHATASE 74 IU/L (46-116); ANION GAP 10 (8-16); ASPARTATE AMINO TRANSFERASE 20 U/L (10-37); BILIRUBIN,TOTAL 0.3 MG/DL (0.1-1.0); BLOOD UREA NITROGEN 21 MG/DL (7-18); BUN/CREATININE RATIO 18.8 (10.0-20.0); CHLORIDE 104 MMOL/L (99-107); CREATININE 1.12 MG/DL (0.40-0.90); GLUCOSE 152 MG/DL (70-104); POTASSIUM 3.6 MMOL/L (3.5-5.1); SODIUM 141 MMOL/L (135-145); TOTAL PROTEIN 6.9 G/DL (6.4-8.2); eGFR 50 ML/MIN
[2022-09-14] MEDS ORDERED: lisinopril 10 MG tablet PO ONE (20:20)
[2022-09-14] MEDS ORDERED: albuterol 2.5 MG/3 ML nebule NEB ONE (20:20)
[2022-09-14] MEDS ORDERED: traMADol 50MG tablet PO ONE (21:25)
[2022-09-14] MEDS ORDERED: cloNIDine 0.1 mg tablet PO ONE (21:25)
[2022-09-14] MEDS ORDERED: methylPREDNISolone sod succ 125mg/2ml vial IV ONE (21:25)
[2022-09-14] MEDS ORDERED: PRED10TA PO (22:39)
[2022-09-14] MEDS ORDERED: LIDO-15 TD (22:39)
[2022-09-14] MEDS ORDERED: ALBU8HFA PO (22:39)
[2022-09-14 22:54] VITALS: BP 176/90
== END 2022-09-14 22:55 | disposition home or self-care (01) ==
LOC: ER 17:47
DX: J44.9 Chronic obstructive pulmonary disease, unspecified (principal); M25.511 Pain in right shoulder; E78.00 Pure hypercholesterolemia, unspecified; E11.9 Type 2 diabetes mellitus without complications; G89.29 Other chronic pain; M54.50 Low back pain, unspecified; F17.200 Nicotine dependence, unspecified, uncomplicated; F12.90 Cannabis use, unspecified, uncomplicated
CPT/HCPCS: 36415; 71045; 73030; 80053; 83880; 84484; 85025; 93005; 94640; 96374; 99285; J2930; 94760

== ENCOUNTER 2024-08-27 11:56 | Emergency (ER) | payer MEDICAID ==
[~2024-08-27] VITALS: Ht 154.9 cm; Wt 60.6 kg
[~2024-08-27 11:56] MED LIST changes: +ALBU18HF2 INH; -AMA1T PO; +CAT3P TD; +DULO-31 PO; -FISH OIL PO; -GABA-530 PO; +GABA300C PO; +GLIM1TAB57 PO; +LISI20TA28 PO; +METO-395 PO; +NOR5T PO; +OMEG1CAP21 PO; +OMEP20CA16 PO
[2024-08-27 12:11] VITALS: TEMP 98.2
[2024-08-27 12:52] LABS: BASOPHILS # (AUTO) 0.1 X10'3 (0-0.2); BASOPHILS % (AUTO) 0.4 % (0-1); EOSINOPHILS % (AUTO) 0 % (0-6); HEMATOCRIT 44.3 % (35.0-45.0); HEMOGLOBIN 14.6 g/dl (12.0-16.0); LYMPHOCYTES # (AUTO) 1.3 X10'3 (1.1-4.8); MEAN CORPUSCULAR HEMOGLOBIN 29.2 PG (27.0-31.0); MEAN CORPUSCULAR VOLUME 88.6 FL (78-98); MEAN PLATELET VOLUME 8.8 FL (7.4-10.4); MONOCYTES # (AUTO) 0.6 X10'3 (0-0.9); MONOCYTES % (AUTO) 4.8 % (2-12); NEUTROPHILS # (AUTO) 9.9 X10'3 (1.8-7.7); NEUTROPHILS % (AUTO) 83.8 % (42-75); PLATELET COUNT 509 X10'3 (140-440); RED CELL DISTRIBUTION WIDTH 13.7 % (11.5-14.5); WHITE BLOOD COUNT 11.8 X10'3 (4.5-11.0)
[2024-08-27 13:07] LABS: ALANINE AMINOTRANSFERASE 27 U/L (12-78); ALBUMIN 4.5 G/DL (3.4-5.0); ALBUMIN/GLOBULIN RATIO 1.1 (1.1-1.5); ALKALINE PHOSPHATASE 100 IU/L (46-116); ANION GAP 17 (8-16); ASPARTATE AMINO TRANSFERASE 25 U/L (10-37); BILIRUBIN,TOTAL 0.5 MG/DL (0.1-1.0); BLOOD UREA NITROGEN 25 MG/DL (7-18); BUN/CREATININE RATIO 14.4 (10.0-20.0); CHLORIDE 99 MMOL/L (99-107); CREATININE 1.74 MG/DL (0.40-0.90); GLUCOSE 242 MG/DL (70-104); LIPASE 35 U/L (16-77); SODIUM 142 MMOL/L (135-145); TOTAL CARBON DIOXIDE 26.4 MMOL/L (24-32); TOTAL PROTEIN 8.6 G/DL (6.4-8.2); eCRCL 26 ML/MIN; eGFR 30 ML/MIN
[2024-08-27] MEDS: ondansetron 4mg rapidly disintigrating tab PO STA (14:01)
[2024-08-27] MEDS ORDERED: POTA-207 PO (15:17)
[2024-08-27] MEDS: proCHLORperazine 10 MG/2 ml inj IV STA (15:51)
[2024-08-27] MEDS: normal saline 1000ml 1,000 ML IV STA (15:51)
[2024-08-27] MEDS ORDERED: ONDA-243 PO (16:44)
[2024-08-27 17:36] LABS: BILIRUBIN,URINE SMALL (Neg); CLARITY,URINE CLEAR (Clear); COLOR,URINE YELLOW (Yellow); GLUCOSE, URINE 100 mg/dl (Neg); KETONES,URINE TRACE mg/dl (Neg); LEUKOCYTE ESTERASE ,URINE NEGATIVE (Neg); NITRITES, URINE NEGATIVE (Neg); OCCULT BLOOD,URINE TRACE-INTACT (Neg); PROTEIN,URINE 100 mg/dl (Neg); UROBILINOGEN,URINE 0.2 E.U/dL (0.2-1.0)
[2024-08-27 17:37] LABS: URINE HCG NEGATIVE (NEG)
[2024-08-27 17:41] LABS: UA COLLECTION TYPE STRAIGHT CATH
[2024-08-27 17:43] LABS: BACTERIA,URINE 1+ /HPF (Neg); SQUAMOUS EPITHELIAL CELL,UR FEW /LPF (FEW); TRANSITIONAL EPI CELLS,URINE FEW /HPF; WBC,URINE 0-4 /HPF (0-4)
[2024-08-27 17:44] LABS: AMORPHOUS PHOSPHATES 1+; FINE GRANULAR CAST 0-3 /LPF (NEGATIVE)
[2024-08-27 17:56] VITALS: BP 138/89; PULSE 98; RESP 15; O2SAT 97
== END 2024-08-27 18:01 | disposition home or self-care (01) ==
LOC: ER 11:57
DX: E87.6 Hypokalemia (principal); R11.2 Nausea with vomiting, unspecified; E78.00 Pure hypercholesterolemia, unspecified; E11.9 Type 2 diabetes mellitus without complications; I10 Essential (primary) hypertension; G89.29 Other chronic pain; M54.9 Dorsalgia, unspecified; F12.90 Cannabis use, unspecified, uncomplicated; Z79.899 Other long term (current) drug therapy; Z98.890 Other specified postprocedural states
CPT/HCPCS: 36415; 80053; 81001; 81025; 82948; 83690; 85025; 96361; 96374; 99285; J0780; J7030; C1758